=== PATIENT | male | born 1980 | race Caucasian/White ===

== ENCOUNTER 2019-11-06 11:10 | Day surgery (SDC) | payer MEDICAID ==
[~2019-11-06] VITALS: Ht 175.3 cm; Wt 74.5 kg
[2019-11-06] MEDS ORDERED: SODIUM CHLORIDE 0.9% 1,000 ML IV ONE ×2 (11:33→14:15)
[2019-11-06] MEDS ORDERED: ONDANSETRON HCL 4MG/2ML INJ IV STA (11:33)
[2019-11-06] MEDS ORDERED: MORPHINE SULFATE 4 MG/ML CPJ (NOT FOR IM USE) IV STA (11:33)
[2019-11-06 12:28] LABS: BASOPHILS % 0.2 % (0.0-2.0); HEMOGLOBIN. 14.9 g/dL (14.0-18.0); LYMPHOCYTES % 8.5 % (20.0-50.0); MEAN CORPUSCULAR HEMOGLOBIN 31.2 pg (28.0-32.0); MEAN CORPUSCULAR VOLUME 92.1 fL (80.0-94.0); MEAN PLATELET VOLUME 7.8 fl (7.4-10.4); MONOCYTES % 7.3 % (2.0-8.0); PLATELET 291 x1000/uL (130-400); RED BLOOD CELL COUNT 4.78 mill/uL (4.7-6.1); RED CELL DISTRIBUTION WIDTH 13.3 % (11.6-14.6)
[2019-11-06 12:35] LABS: CHLORIDE 105 mEq/L (98-107)
[2019-11-06 12:47] LABS: INR 1.1; PROTHROMBIN TIME 11.9 sec (9.6-11.0)
[2019-11-06] MEDS ORDERED: SODIUM CHLORIDE 0.9% 1,000 ML IV SCH (13:23)
[2019-11-06] MEDS ORDERED: ONDANSETRON HCL 4MG/2ML INJ IV PRN ×2 (13:30→14:15)
[2019-11-06] MEDS ORDERED: CLONIDINE 0.1MG TABLET PO PRN (13:30)
[2019-11-06] MEDS ORDERED: MORPHINE SULFATE 2 MG/ML CPJ (NOT FOR IM USE) IV PRN ×2 (13:30→14:15)
[2019-11-06 14:00] VITALS: BP 122/68
[2019-11-06] MEDS ORDERED: MEPERIDINE HCL/PF 25MG/ML CPJ IV PRN ×2 (14:15)
[2019-11-06] MEDS ORDERED: HYDROMORPHONE HCL/PF 2MG/ML CPJ IV PRN (14:15)
[2019-11-06] MEDS ORDERED: ROCURONIUM BROMIDE 10MG/ML VIAL 5ML IV ONE (14:23)
[2019-11-06] MEDS ORDERED: FENTANYL CITRATE/PF 50MCG/ML 2ML VIAL ONE (14:23)
[2019-11-06] MEDS ORDERED: SODIUM CHLORIDE 0.9% 10ML VIAL ONE (14:24)
[2019-11-06] MEDS ORDERED: CEFAZOLIN SODIUM 1000MG/VIAL ONE (14:24)
[2019-11-06] MEDS ORDERED: NEOSTIGMINE METHYLSULFATE 1MG/ML 10 ML VIAL ONE (14:24)
[2019-11-06] MEDS ORDERED: EPHEDRINE SULFATE 50MG/ML VIAL ONE (14:24)
[2019-11-06] MEDS ORDERED: METOCLOPRAMIDE HCL 10MG/2ML VIAL ONE (14:24)
[2019-11-06] MEDS ORDERED: SUCCINYLCHOLINE CHLORIDE 200MG/10ML IV ONE (14:24)
[2019-11-06] MEDS ORDERED: GLYCOPYRROLATE 0.2 MG/ML 2ML VIAL ONE (14:24)
[2019-11-06] MEDS ORDERED: MIDAZOLAM HCL 2 MG/2 ML VIAL ONE (14:24)
[2019-11-06] MEDS ORDERED: PROPOFOL 200MG/20ML VIAL IV ONE (14:24)
== END 2019-11-06 16:15 | disposition home or self-care (01) ==
LOC: ER 11:10 → CANRESERV 14:18 → ENRESERV 14:18 → OR 14:55 → CANBEDREQ 16:30
PROVIDERS: ATTEND Surgery
DX: T18.5XXA Foreign body in anus and rectum, initial encounter (principal); F17.210 Nicotine dependence, cigarettes, uncomplicated; Z79.899 Other long term (current) drug therapy; Z98.890 Other specified postprocedural states; X58.XXXA Exposure to other specified factors, initial encounter; Y93.89 Activity, other specified; Y92.89 Other specified places as the place of occurrence of the external cause
CPT/HCPCS: 36415; 45915; 71045; 74018; 74176; 80053; 83690; 85025; 85610; 93005; 96360; 96361; 99285; J0330; J0690; J2250; J2405; J2704; J2765; J3010; J3490; J7030; J2270; J2710